=== PATIENT | female | born 1995 | race Caucasian/White ===

== ENCOUNTER → 2024-09-22 | Outpatient (CLI) | payer OTHER ==
--- NOTE | 2024-09-24 08:43 | MR ---
EXAMINATION TYPE: MR knee RT wo con DATE OF EXAM: 09/22/2024 4:15 PM COMPARISON: None. CLINICAL INDICATION: Female, 28 years old with history of S83.211A TEAR OF MEDIAL MENSC, CRNT INJURY, R KNEE; PHH, Right knee pain for 3 weeks due to slip on ice. TECHNIQUE: Multi planar, multi sequence imaging was performed of the knee including: Triplane proton density fat-saturated images and T1-weighted imaging. No Gadolinium was given. IV Contrast: mL (none if empty) FINDINGS: Medial meniscus: Intact Medial femorotibial cartilage: Intact Medial collateral ligament: Intact Lateral meniscus: Intact Lateral femorotibial cartilage: Intact Lateral collateral ligament complex: Intact Patellofemoral alignment: Normal Patellofemoral cartilage: Intact Extensor mechanism: Intact. Joint/bursal fluid: None. Muscles/tendons: The patellar tendon, quadriceps tendon, IT band, pes anserinus tendons, semimembrano patsy tendon, popliteus tendon, and biceps femoris tendon are all within normal limits. Bone marrow: Increased bone signal the medial femoral condyle Anterior cruciate ligament: Intact. Posterior cruciate ligament: Intact. Soft tissues: Unremarkable. IMPRESSION: 1. Medial femoral condyle contusion/bone bruise. 2. No definitive evidence to suggest meniscal tear nor ligamentous injury. [facility], , 09/24/2024 8:41 AM
== END | disposition home or self-care (01) ==
LOC: RADMRIMAIN 15:27
PROVIDERS: ATTEND Family Medicine
DX: S83.211A Bucket-handle tear of medial meniscus, current injury, right knee, initial encounter (principal); S80.01XA Contusion of right knee, initial encounter